=== PATIENT | male | born 1965 | race Caucasian/White ===

== ENCOUNTER 2019-09-19 14:18 | Inpatient (IN) ==
[2019-09-19] MEDS ORDERED: NS 1,000 ML IV ONE (14:51)
[2019-09-19] MEDS ORDERED: PEPCID IV ONE (14:52)
[2019-09-19] MEDS ORDERED: PROTONIX IV ONE (14:52)
[2019-09-19] MEDS ORDERED: SODIUM CHLORIDE 0.9% INJ ONE ×2 (14:52)
[2019-09-19 15:11] LABS: BASO# 0.08 X1000 (0.0-0.2); BASO% 0.5 % (0.0-0.8); EOS% 3.4 % (0.0-10.0); HEMATOCRIT 27.1 % (42.0-52.0); HEMOGLOBIN 8.8 g/dL (14.0-18.0); IMM GRAN# 0.07 X1000 (0.0-0.04); IMM GRAN% 0.5 % (0.0-0.5); LYMPH# 4.15 X1000 (1.2-3.4); LYMPH% 28.2 % (20.5-51.1); MCH 29.1 PG (27-31); MCHC 32.5 g/dL (33-37); MCV 89.7 FL (81-99); MONO# 0.87 X1000 (0.11-0.59); MONO% 5.9 % (1.7-9.3); MPV 10.7 FL (7.4-10.4); NEUT# 9.05 X1000 (1.4-6.5); NEUT% 61.5 % (42.2-75.2); PLT 277 X1000 (130-400); RBC 3.02 XMIL (4.7-6.1); RDW 12.6 % (11.5-14.5); WBC 14.72 X1000 (4.8-10.8)
[2019-09-19 15:27] LABS: AGAP 12; ALBUMIN 3.6 g/dL (3.5-5.0); ALKALINE PHOSPHATASE 50 U/L (32-122); BUN 37 mg/dL (8-22); CALCIUM 8.5 mg/dL (8.8-10.2); CHLORIDE 104 mmol/L (98-107); COSMO 287; CREATININE 1.2 mg/dL (0.7-1.2); ESTIMATED GFR > 60; GLUCOSE 109 mg/dL (70-104); GOT 33 U/L (10-34); GPT 52 U/L (10-44); SODIUM 139 mmol/L (136-145); TCO2 22 mmol/L (25-35); TOTAL BILIRUBIN < 0.15 mg/dL (0.20-1.00); TOTAL PROTEIN 6.2 g/dL (6.3-8.3)
--- NOTE | 2019-09-19 15:43 | PROVIDER DOCUMENTATION ---
This chart was entered by Cristina Atkinson Scribe, acting as scribe for Jacqueline Mcdaniels MD. HPI-Abdominal Pain/GI Problem - General Chief Complaint: GI Bleed Stated Complaint: STOMACH PAIN/BLEEDING Time Seen by Provider: 09/19/19 14:31 Source: patient Allergies/Adverse Reactions: Patient Allergies Allergy/AdvReac Type Severity Reaction Status Date / Time No Known Allergies Allergy Verified 09/19/19 14:40 Home Medications: Home Medication List Medication Instructions Recorded Confirmed Last Taken Type NK [No Home Medications] 09/19/19 09/19/19 Unknown History - History of Present Illness-ABD Nature of Presenting Problems: Patient is a 54 year old male who presents with epigastric pain. States having rectal bleeding. Reports symptoms started 2 days ago. Denies nausea and vomiting. Abdominal Pain Onset Location: reports: epigastric Pain Radiation: reports: no radiation Quality of Pain: reports: aching Severity in ED: reports: mild Onset/Duration: reports: 2 days ago Timing: reports: still present Activities at Onset: reports: light activity Associated Symptoms: denies: nausea, vomiting Dark Stools Present?: reports: black, bright red blood Rectal Bleeding: reports: blood streaks on stool Emesis Description: reports: none Bruising or Bleeding Gums?: No Similar Symptoms Previously?: Yes Recently seen or treated by another doctor?: Yes Review of Systems - Adult - REVIEW OF SYSTEMS - ADULT Constitutional: reports: no symptoms reported Eyes: reports: no symptoms reported Ears, Nose, Mouth & Throat: reports: no symptoms reported Cardiovascular: reports: no symptoms reported Respiratory: reports: no symptoms reported Gastrointestinal: reports: see HPI, abdominal pain (epigastric), rectal bleeding . denies: nausea, vomiting Genitourinary: reports: no symptoms reported Musculoskeletal: reports: no symptoms reported Integumentary: reports: no symptoms reported Neurological: reports: no symptoms reported Psychiatric: reports: no symptoms reported Endocrine: reports: no symptoms reported Hematologic/Lymphatic: reports: no symptoms reported Allergic/Immunologic: reports: no symptoms reported All Other Systems: Reviewed and Negative Past History - Adult - PAST MEDICAL HISTORY-ADULT Review of Records: reports: Old Records Reviewed, Nursing Assessment Review, Medications Reviewed, Social history reviewed & non-contributory. Major Childhood Illnesses: reports: denies history Cardiovascular: reports: HTN Respiratory: reports: COPD Gastrointestinal: reports: GERD, ulcer Obstetrical/Gynecological: reports: denies history Genitourinary: reports: kidney stones Musculoskeletal: reports: arthritis (RA) Neurological: reports: CVA, headaches/migraines, TIA Psychiatric: reports: denies history Endocrine/Immune: reports: cancer (melanoma) Other Conditions: reports: denies history, other (PUD) - PRIOR SURGERIES/PROCEDURES Surgical/Procedure History: reports: EGD (2013), cholecystectomy, tonsillectomy, other (kidney stone; lithrotripsy; skin CA) - PRIOR HOSPITALIZATIONS Prior Hospitalizations: reports: for other non-related - IMMUNIZATION STATUS Childhood Immunizations: See Nurse Assessment Flu Vaccine: See Nurse Assessment - FAMILY HISTORY Family History: reviewed, not pertinent - SOCIAL HISTORY Smoking: cigarettes, less than 1 pack/day Provider spent 3-5 mins advising pt. on dangers of tobacco.: Discussed manners to quit use, and f/u contacts for add'l counseling. Substance Use: denies Physical Exam-General - PHYSICAL EXAM-ADULT Initial Vital Signs Reviewed: Yes - CONSTITUTIONAL General Appearance: alert, no apparent distress. negative: lethargic - EYES Eyes: pale conjunctivae. negative: subconjunctival hemorrhage, sunken eyes - HEAD, EARS, NOSE, MOUTH & THROAT HENMT: normocephalic/atraumatic, moist mucous membranes. negative: angioedema - RESPIRATORY Respiratory: chest non-tender, lungs clear, normal breath sounds. negative: wheezing - CARDIOVASCULAR Cardiovascular: regular rate, rhythm. negative: tachycardia, systolic murmur - GASTROINTESTINAL (ABDOMEN) Abdominal Exam: normal bowel sounds, soft, tenderness (epigastric). negative: distended - GENITOURINARY Rectal Exam: deferred - MUSCULOSKELETAL Extremity: non-tender, normal inspection. negative: swelling - SKIN Integumentary: normal turgor, warm/dry, pallor. negative: diaphoresis - NEUROLOGIC Neurologic: grossly normal. negative: aphasia, facial droop - PSYCHIATRIC Psych/Mental Status: normal mood/affect, normal thought content, normal thought process, oriented x 3. negative: anxious Progress - PLAN OF CARE/RESULTS Progress/Plan/Lab Results: Vital Signs - 8 hr 09/19/19 14:27 Temperature 98.1 F Pulse Rate 92 H Respiratory Rate 24 Blood Pressure 163/83 O2 Sat by Pulse Oximetry 100 Result Diagrams: 09/19/19 14:53 09/19/19 14:53 - REASSESSMENT Reassessment #1 Status: unchanged (patient with recent GI blood loss anemia. recently seen admitied left AMA prior to transfer to [facility] General, bright red blood per rectum, spoke to Gi /hospitalist will admit.) - CONSULTS/PCP/HOSPITALIST Notification #1 *Consult/PCP/Hospitalist*: Dr Cardenas, Dr Koroma Time Discussed: 15:42 Consult Disposition: Admit Departure - Departure Date of Disposition Decision: 09/19/19 Time of Disposition Decision: 15:32 DIAGNOSIS: Anemia due to GI blood loss, GI bleed Disposition: STILL A PATIENT 30 Certified Medical Emergency: Emergent Condition: Stable Referrals and Follow-Ups: None,PCP [Primary Care Provider] - - Critical Care Note This patient required my direct & personal management of CC.: No Attestation - Physician/ KAMRAN Attestation The physician spent face to face time with patient:: Yes Advanced Practice Provider documentation review:: Supervising physician onsite and consulted in the evaluation and care of this patient. The physician did have a face to face encounter with the patient. This chart was documented by the indicated scribe, (Cristina Atkinson Scribe) and accurately reflects the services I performed and decisions made by me, Jacqueline Mcdaniels MD, as attested by the provider's signature.
[2019-09-19] MEDS ORDERED: NS 500 ML IV ONE ×2 (17:09→22:00)
[2019-09-19] MEDS ORDERED: PROTONIX 80 MG in NS 80 ML IV SCH (17:15)
[2019-09-19] MEDS ORDERED: NS 100 ML ONE ×2 (17:54→18:05)
--- NOTE | 2019-09-19 19:44 | HISTORY AND PHYSICAL ---
ADDENDUM: Patient seen and examined by myself. Full note dictated and discussed with nurse practitioner. Patient was actually seen in the ER last night at [facility], although he left before being treated. At that point, his hemoglobin was 13 and hematocrit was 41. He presented today after having another hematemesis episode at home. He has been taking Excedrin migraine. He has been emotionally stressed lately. His BUN both times was elevated at 37. Currently, his hemoglobin is down to 8.8 and hematocrit 27. He does have a leukocytosis of undetermined origin currently. We are going to admit in the hospital, type and crossmatch and transfuse. Place him on Protonix drip given that he is likely having an upper GI bleed and we will follow. We will transfer him to [facility] for further evaluation by GI. cc: Julian White MD
--- NOTE | 2019-09-19 19:49 | HISTORY AND PHYSICAL ---
PRIMARY CARE PHYSICIAN: Listed as none. CHIEF COMPLAINT: Epigastric abdominal pain and rectal bleeding over the past 2 days with black stools and bright red blood. HISTORY OF PRESENTING ILLNESS: This is a 54-year-old male who presents to [facility] ER with complaints of epigastric abdominal pain and rectal bleeding over the last 2 days with black stools with bright red blood. His hemoglobin and hematocrit currently are 8.8 and 27.1, but compared to 09/17/2019 he was 13.5 and 41, so he is being admitted for further evaluation and treatment to the [facility] for GI consultation. PAST MEDICAL HISTORY: Hypertension, COPD, GERD, peptic ulcer disease, kidney stones, rheumatoid arthritis, CVA, and melanoma. PAST SURGICAL HISTORY: Cholecystectomy, tonsillectomy, skin cancer, lithotripsy. FAMILY HISTORY: Reviewed and noncontributory. SOCIAL HISTORY: He currently lives with family. Smokes 1/2 pack of cigarettes a day. Denied any alcohol or illicit drug use. ALLERGIES: No known drug allergies. HOME MEDICATIONS: No known medications. LABORATORY DATA: Showed a white blood cell count of 14.72, hemoglobin 8.8, hematocrit 27.1, platelets 277,000. Again, see the previous documentation above for his hemoglobin and hematocrit 2 days ago. Sodium 139, potassium 4, chloride 104, CO2 of 22, BUN of 37, creatinine 1.2, glucose 109. REVIEW OF SYSTEMS: He denied any fever, chills, blurred vision, dizziness, chest pain, coughing, shortness of breath. He had epigastric abdominal pain, rectal bleeding that was bright red with dark black stools. Denied any burning or hurting with urination. PHYSICAL EXAMINATION: VITAL SIGNS: On arrival, he had a temperature of 98.1 degrees, pulse 92, respirations 24, blood pressure 163/83, saturating 100% on room air. GENERAL: This is a 54-year-old male who is lying in the bed, answers questions appropriately. HEENT: Normocephalic, atraumatic. Normal ENT inspection. Oropharynx and nares are clear. Eyes: Pupils are equal, round, reactive to light and accommodation. Extraocular movements are intact. NECK: Normal inspection. Normal range of motion. LUNGS: Clear to auscultation bilaterally with equal lung expansion and chest wall movement. HEART: Regular rate and rhythm. No murmurs, rubs, or gallops. ABDOMEN: Soft. There was some tenderness to the epigastric area to palpation. Bowel sounds are present x4 quadrants. MUSCULOSKELETAL: He had 5/5 strength x4 extremities. NEUROLOGICAL: The cranial nerves 2 through 12 are grossly intact. ASSESSMENT: 1. Gastrointestinal bleed. 2. Epigastric abdominal pain. 3. Leukocytosis. 4. Tobacco abuse. PLAN: He will be transferred to the [facility], placed on telemetry. We will consult GI, place on a clear liquid diet. We will transfuse 2 units of packed red blood cells today. He is on Protonix 40 mg IV every 12 hours, Zofran 4 mg IV every 4 hours p.r.n., SCDs for DVT prophylaxis. Recheck a CBC and BMP in the a.m. and further orders after seen by attending and recruiting operations consultant. Dictated by KRISTEN Lara for Julian White MD cc: KRISTEN Lara MD
[2019-09-19] MEDS ORDERED: ZOFRAN IV PRN (22:05)
[2019-09-19] MEDS: NICODERM PATCH TD PRN (23:14)
[2019-09-19 23:19] LABS: HEMATOCRIT 24.8 % (42.0-52.0)
[2019-09-20] MEDS ORDERED: PROTONIX IV SCH ×3 (02:00→17:12)
[2019-09-20] MEDS: PROTONIX 80 MG in NS 80 ML IV SCH ×2 (03:46→16:03)
[2019-09-20] MEDS: TYLENOL PO PRN (05:22)
[2019-09-20 06:53] LABS: BASO# 0.05 X1000 (0.0-0.2); BASO% 0.6 % (0.0-0.8); EOS# 0.57 X1000 (0.0-0.7); EOS% 6.8 % (0.0-10.0); HEMATOCRIT 26.7 % (42.0-52.0); HEMOGLOBIN 8.6 g/dL (14.0-18.0); IMM GRAN# 0.04 X1000 (0.0-0.04); IMM GRAN% 0.5 % (0.0-0.5); LYMPH# 2.32 X1000 (1.2-3.4); LYMPH% 27.6 % (20.5-51.1); MCH 28.7 PG (27-31); MCHC 32.2 g/dL (33-37); MONO# 0.51 X1000 (0.11-0.59); MONO% 6.1 % (1.7-9.3); MPV 10.6 FL (7.4-10.4); NEUT# 4.92 X1000 (1.4-6.5); NEUT% 58.4 % (42.2-75.2); PLT 216 X1000 (130-400); RDW 13.2 % (11.5-14.5); WBC 8.41 X1000 (4.8-10.8)
[2019-09-20 07:06] LABS: INR 1.07
[2019-09-20 07:18] LABS: AGAP 8; BUN 25 mg/dL (8-22); CALCIUM 8.3 mg/dL (8.8-10.2); CHLORIDE 110 mmol/L (98-107); COSMO 287; CREATININE 1.2 mg/dL (0.7-1.2); ESTIMATED GFR > 60; GLUCOSE 119 mg/dL (70-104); POTASSIUM 4.2 mmol/L (3.5-5.1); SODIUM 141 mmol/L (136-145); TCO2 23 mmol/L (25-35)
--- NOTE | 2019-09-20 08:46 | PROGRESS NOTE ---
DATE: 09/20/2019 SUBJECTIVE: Patient reports no more episodes of bloody stools. Actually, he had not had any bowel movement in the last 24 hours. OBJECTIVE: Vital Signs: Temperature 97.9 degrees, heart rate 73, respiratory rate 22, blood pressure 147/87, O2 saturation 100% on room air. General: This is a 54-year-old male, lying in bed, in no acute distress. Cardiovascular: S1, S2 heard. No murmurs, gallops, or rubs. Regular rate and rhythm. Respiratory: Clear bilaterally to auscultation. No work of breathing. Not using accessory muscles. Abdomen: Soft. Mild tenderness to palpation in the epigastric area but there are no signs of peritoneal irritation. Bowel sounds present. No organomegaly. Extremities: No clubbing, cyanosis, or edema. Peripheral pulses present in both legs. Neurological: Patient is alert and oriented x3. Moves 4 extremities. LABORATORY DATA: White cell count 8.41, hemoglobin is 8.6, hematocrit 26.1, platelets 216,000. So far he has received 1 unit of blood yesterday afternoon. ASSESSMENT: 1. Gastrointestinal bleeding. 2. Epigastric abdominal pain. 3. Leukocytosis. 4. Tobacco abuse. PLAN: At this point, the patient's hemoglobin is stable after of course 1 unit of blood transfused. At this point, we are awaiting GI evaluation to see if this patient will need to have EGD at this time or not. We will continue to monitor this patient closely. We will continue with IV fluids. The patient has been advised to quit smoking. Patient acknowledged understanding. cc: Alberto Fortune MD
[2019-09-20] MEDS ORDERED: SODIUM CHLORIDE 0.9% INJ SCH (17:00)
[2019-09-20] MEDS: NICODERM PATCH TD PRN (19:54)
[2019-09-21] MEDS: TYLENOL PO PRN ×2 (00:12→05:39)
[2019-09-21 03:21] VITALS: BP 150/89
[2019-09-21 06:37] LABS: HEMATOCRIT 26.5 % (42.0-52.0); HEMOGLOBIN 8.5 g/dL (14.0-18.0)
--- NOTE | 2019-09-21 09:14 | DISCHARGE SUMMARY ---
ADMISSION DATE: 09/19/2019 DISCHARGE DATE: 09/21/2019 DISCHARGE DIAGNOSES: 1. Gastrointestinal bleeding, resolved. 2. Epigastric abdominal pain, resolved. 3. Tobacco abuse. CONSULTATIONS: Dr. Figueroa from GI. PROCEDURES: None. HOSPITAL COURSE: This is a 54-year-old, male, who presented to the emergency department at [facility] complaining of epigastric pain and rectal bleeding over the last 2 days, with black stools and bright red blood. Hemoglobin has been 8.8, and he received 1 unit of blood, and he was transferred to [facility]. Evaluated by GI. They think that this patient does not need to have any endoscopy evaluation at this time. We decided to keep this patient one more day, and we made sure that the hemoglobin is stable at 8.6, so we are going to discharge this patient in stable condition. No more episodes of blood in stools. DISCHARGE PHYSICAL EXAMINATION: Vital Signs: Temperature 98.4 degrees, heart rate 70, respiratory rate 18, blood pressure 150/89, O2 saturation 100% on room air. General: This is a 54-year-old, male, lying in bed in no acute distress. Cardiovascular: S1, S2 heard. No murmurs, gallops, or rubs. Regular rate and rhythm. Respiratory: Clear bilaterally to auscultation. No work of breathing or using accessory muscles. Abdomen: Soft, nontender to palpation. Bowel sounds present. No organomegaly. Extremities: No clubbing, cyanosis, or edema. Peripheral pulses present in both legs. Neurological: The patient is alert and oriented x3. Moves all 4 extremities. DISCHARGE DISPOSITION: Home to self-care. FOLLOWUP: Follow up with Dr. Figueroa in 2 to 3 weeks. DISCHARGE MEDICATIONS: 1. Protonix 40 mg 1 tablet p.o. b.i.d. for a month. 2. Amlodipine 5 mg 1 tablet p.o. b.i.d. TIME SPENT: Time discharging this patient was 29 minutes. cc: Alberto Fortune MD
--- NOTE | 2019-09-22 04:27 | GASTROENTEROLOGY CONSULTATION ---
DATE: 09/20/2019 HISTORY OF PRESENT ILLNESS: Mr. Marmolejo is admitted for further evaluation of acute GI bleed and anemia. This was his second visit to the hospital with similar complaints. The patient has history of headaches and has been taking Excedrin Migraine quite often for his headaches. He came to the hospital at [place] with complaints of abdominal pain. He points toward the epigastric area associated with some nausea and he has had some melena along with some bright red blood per rectum. He has had an EGD years ago in [place], but he has never had a colonoscopy. On evaluation he was found to be anemic. His hemoglobin was 8.8 with hematocrit 27.1. Since admission he has received IV PPI and tells me that he has not had any further melena or bright red blood per rectum. He has been on clear liquid and has just finished his lunch. He reports that he tolerated lunch very well and did not have any abdominal pain, nausea, or vomiting with it. He reports no fever or chills. Has not had any headache, but complains of some dizziness. Denies any sore throat or sores in his mouth. Has had no dysphagia or odynophagia. His appetite has been good. He has not lost any weight. Denies constipation or diarrhea, but he has had melena with black blood per rectum. Denies any dysuria, polyuria, or hematuria. Denies any cough, sputum, or hemoptysis. PAST MEDICAL HISTORY: Significant for gastroesophageal reflux disease and carries a remote history of peptic ulcer disease, hypertension, COPD, and nephrolithiasis. He carries a diagnosis of rheumatoid arthritis and CVA. PAST SURGICAL HISTORY: He has had a cholecystectomy recently. For his other surgeries, he had tonsillectomy, lithotripsy for his nephrolithiasis, and skin cancer removed. MEDICATIONS: Prior to his hospitalization he has been on Excedrin Migraine. He takes hypertension medication, but unfortunately he does not have any primary care. I am not sure if he was taking it regularly or not. ALLERGIES: No drug allergies. SOCIAL HISTORY: Single. He used to use to be on drugs. He says he has been clean for about a year now. Smokes a pack of cigarettes that lasts him 2 days. Does not drink. Does not do illicit drugs now. FAMILY HISTORY: Noncontributory. REVIEW OF SYSTEMS: As per HPI as above. PHYSICAL EXAMINATION: general: Very pleasant white male. He is anxious. He is conscious. He is alert. He appears to be in no distress, but he is anxious to go home. vital signs: Temperature now is 98.2, pulse 71 per minute, breathing at 24, blood pressure 150/89. HEENT: Head is atraumatic, normocephalic. Eyes: Conjunctivae are mildly pale. Sclerae anicteric. Nares are patent; no discharge. Mouth feels moist. Throat is normal. Neck: Neck supple. No lymphadenopathy or thyromegaly noted. chest: Bilaterally symmetrical. It is moving with respirations. Breath sounds audible bilaterally. No rhonchi or crepitations could be heard. Heart: S1, S2 audible. No murmur could be appreciated. Abdomen: Full. It is soft. It is nontender. I could not appreciate any mass or visceromegaly. No ascites noted. Bowel sounds are audible. No pedal edema, cyanosis, or clubbing was noted. CENTRAL NERVOUS SYSTEM: Grossly intact. No sensory or motor deficit noted. LABORATORIES: Reviewed which showed WBC on admission was 14.72 which has come down to 8.41, hemoglobin on admission was 8.0, hematocrit 24.2 (today is 8.6 and 26.7), MCV 89.0, platelets were 216,000. Sodium 141, potassium 4.2, chloride 110, bicarb is 23, BUN is 25, creatinine 1.2. Liver function tests: AST is 33, ALT 52, total bilirubin 0.15, alkaline phosphatase is 50. IMPRESSION: Acute gastrointestinal bleed anemia secondary to gastrointestinal bleed. He carries a diagnosis of peptic ulcer disease. This may be recurrent peptic ulcer disease, especially when he is taking Excedrin Migraine every day for his headache. Most likely the headache is from hypertension which I presume is not under control. His blood pressure is not under control. He does need endoscopy. He would have had one today, but unfortunately he was not put NPO and is still drinking liquids now. He is not actively bleeding and he is hemodynamically stable. At this point, there is no urgency to proceed with endoscopy urgently, but I would schedule him for EGD at least on Sunday. The problem is that he is very anxious and wants to leave right now, but I have given him the pros and cons of leaving without having any endoscopic evaluation to find out the source of his bleeding and he may have recurrence of the bleeding, especially if he starts Excedrin Migraine again. His blood pressure is slightly elevated. He needs to be started on antihypertensive medication to control his blood pressure. That will in turn control his headache and he may not have to take Excedrin Migraine. He needs to be on PPI, at least Prilosec 40 mg every day. If he stays in the hospital, he will be scheduled for endoscopic evaluation on Sunday. Otherwise, that can be done as an outpatient. He needs to follow up with me in the office. I explained the findings and plan. He understands and wants to discuss it with his primary care. cc: Ingacio Figueroa MD
== END 2019-09-21 09:54 | disposition home or self-care (01) | DRG 812 ==
LOC: P.ED 14:18 → SUATTDRO 14:19 → 3N 20:58
PROVIDERS: ATTEND Internal Medicine